=== PATIENT | male | born 1980 | race Caucasian/White ===

== ENCOUNTER → 2016-07-19 | Outpatient (CLI) | payer OTHER ==
[~2016-07-19] MED LIST: LEVAQUIN 750MG750 M1 PO; MEDROL DOSEPAK4 MG PO; XOPENEX HF0.045 MG/A IH
== END ==
LOC: LAB 08:32
DX: Z00.00 Encounter for general adult medical examination without abnormal findings (principal)

== ENCOUNTER → 2017-02-22 | Outpatient (CLI) | payer OTHER ==
[2016-06-06 13:37] VITALS: BP 136/81
== END ==
LOC: RAD 17:14
DX: R05 Cough (principal); R06.02 Shortness of breath; R50.9 Fever, unspecified

== ENCOUNTER → 2017-02-25 | Outpatient (CLI) | payer OTHER ==
[2016-06-06 13:37] VITALS: BP 136/81
== END ==
LOC: RAD 08:37
DX: J18.9 Pneumonia, unspecified organism (principal)

== ENCOUNTER → 2017-03-01 | Outpatient (CLI) | payer OTHER ==
[2016-06-06 13:37] VITALS: BP 136/81
== END ==
LOC: LAB 13:39
DX: J18.8 Other pneumonia, unspecified organism (principal)

== ENCOUNTER → 2020-04-26 | Outpatient (CLI) | payer OTHER ==
[2018-11-15 00:36] VITALS: BP 145/94
[~2020-04-26] MED LIST changes: +NORCO 325 MG-51 TA1 PO
== END ==
LOC: RAD 09:22
DX: M25.512 Pain in left shoulder (principal)

== ENCOUNTER → 2024-08-07 | Outpatient (CLI) | payer OTHER ==
[2024-08-07 11:11] LABS: BASO # 0.01 K/mm3 (0.02-0.10); EOS # 0.06 K/mm3 (0.04-0.40); HEMATOCRIT 45.6 % (42.0-52.0); HEMOGLOBIN 15.7 g/dL (13.5-18.0); LYMPH# 1.64 K/mm3 (1.50-4.00); MEAN CELL VOLUME 84 fl (78-100); MEAN CORPUSCULAR HEMOGLOBIN 29 pg (27-31); MEAN CORPUSCULAR HGB CONC 34 g/dL (33-37); MEAN PLATELET VOLUME 9.7 fl (7.4-10.4); MONO # 0.36 K/mm3 (0.20-0.80); NEU # 3.89 K/mm3 (1.40-6.50); PLATELET COUNT 211 K/mm3 (130-400); RED BLOOD COUNT 5.41 M/mm3 (4.20-5.60); RED CELL DISTRIBUTION WIDTH 12.4 % (11.5-14.5)
[2024-08-07 11:13] LABS: ALBUMIN 4.6 g/dL (3.5-5.0)
[2024-08-07 11:14] LABS: CALCIUM 9.7 mg/dL (8.3-10.5)
[2024-08-07 11:15] LABS: TOTAL PROTEIN 7.4 g/dL (6.4-8.3)
[2024-08-07 11:17] LABS: TOTAL BILIRUBIN 0.6 mg/dL (0.2-1.2)
[2024-08-07 11:22] LABS: MAGNESIUM 2.1 mg/dL (1.60-2.60)
== END ==
LOC: LAB 10:51
PROVIDERS: Internal Medicine
DX: Z00.00 Encounter for general adult medical examination without abnormal findings (principal); Z12.5 Encounter for screening for malignant neoplasm of prostate; E78.2 Mixed hyperlipidemia; K90.9 Intestinal malabsorption, unspecified